=== PATIENT | male | born 2000 | race Caucasian/White ===

== ENCOUNTER 2019-10-26 16:55 | Emergency (ER) | payer BC, OTHER ==
--- NOTE | 2019-10-26 17:16 | EDM.PDOC ---
ED HPI GENERAL MEDICAL PROBLEM - General Chief Complaint: Lower Extremity Injury/Pain Stated Complaint: SPRAINED ANKLE Time Seen by Provider: 10/26/19 17:00 Source of Information: Reports: Patient History Limitations: Reports: No Limitations - History of Present Illness INITIAL COMMENTS - FREE TEXT/NARRATIVE: Patient comes into the emergency department complaints of a left foot injury. Patient states that he was working outside earlier today approximately hours ago when he stepped into a hole with his left foot. [place] hearing any popping or cracking sensation was able to continue with his activities of daily living any difficulty. He even finished his shift today. After his shift and he went home he noticed that he did have a little bit of swelling on the lateral aspect of his ankle and he wanted it checked out further. He denies having any concerns with ambulation, CMS, or range of motion. Patient states that he is able to do all activities without difficulty. Patient states that if he is sitting and not moving his foot he does not notice any discomfort and pain. He only notices the pain is more when he is flexing his foot. He just noticed that there was some bruising and mild swelling on the lateral aspect and wanted to have it checked out. Patient denies any other injuries or concerns. Patient denies any chest pain, shortness of breath, dizziness, lightheadedness, loss consciousness, GI upset, genitourinary concerns or peripheral edema. Patient also states is been relatively healthy and does not have any COVID-19 symptoms and states has not had any recent testing. He denies taking any medication or providing any [id number] relief to the discomfort of his lower extremity prior to arrival. Onset: Today, Sudden Location: Reports: Lower Extremity, Left Quality: Reports: Throbbing Severity: Mild Improves with: Reports: Immobilization Worsens with: Reports: Movement Context: Reports: Activity Associated Symptoms: Reports: No Other Symptoms - Related Data Allergies Allergy/AdvReac Type Severity Reaction Status Date / Time Cephalosporins Allergy Swelling Verified 10/26/19 17:09 Penicillins Allergy Swelling Verified 10/26/19 17:09 Home Meds: Home Meds Sertraline [Zoloft] 50 mg PO DAILY 10/26/19 [History] busPIRone [Buspar] 15 mg PO BID 10/26/19 [History] traZODone HCl [Trazodone HCl] 100 mg PO BEDTIME 10/26/19 [History] Review of Systems - Review of Systems Review Of Systems: Comprehensive ROS is negative, except as noted in HPI. Constitutional: Reports: No Symptoms Eyes: Reports: No Symptoms Ears: Reports: No Symptoms Nose: Reports: No Symptoms Mouth/Throat: Reports: No Symptoms Respiratory: Reports: No Symptoms Cardiovascular: Reports: No Symptoms GI/Abdominal: Reports: No Symptoms Genitourinary: Reports: No Symptoms Skin: Reports: No Symptoms Neurological: Reports: No Symptoms Psychiatric: Reports: No Symptoms ED EXAM, GENERAL - Physical Exam Exam: See Below Exam Limited By: No Limitations General Appearance: Alert, WD/WN, No Apparent Distress Head: Atraumatic, Normocephalic Neck: Normal Inspection, Supple, Non-Tender, Full Range of Motion Respiratory/Chest: No Respiratory Distress, No Accessory Muscle Use, Chest Non- Tender Cardiovascular: Normal Peripheral Pulses, Regular Rate, Rhythm, No Edema Extremities: Normal Inspection, Normal Range of Motion, Non-Tender, No Pedal Edema, Normal Capillary Refill, Other (left foot-mild tissue swelling and ecchymosis noted at the lateral malleolus. CMS and range of motion intake. Pulses palpable. No redness, warmth or deforimity noted) Neurological: Alert, Oriented, Normal Cognition, Normal Gait Psychiatric: Normal Affect, Normal Mood Skin Exam: Warm, Dry, Intact, Normal Color, No Rash Departure - Departure Time of Disposition: 17:10 Disposition: Home, Self-Care 01 Condition: Good Clinical Impression: Left ankle sprain Qualifiers: Encounter type: initial encounter Involved ligament of ankle: unspecified ligament Qualified Code(s): S93.402A - Sprain of unspecified ligament of left ankle, initial encounter - Discharge Information *PRESCRIPTION DRUG MONITORING PROGRAM REVIEWED*: Not Applicable *COPY OF PRESCRIPTION DRUG MONITORING REPORT IN PATIENT TRICIA: Not Applicable Instructions: Ankle Sprain, [id number], How to Use Cold Therapy Additional Instructions: 1. Rest 2. wear marielena wrap if needed for 5-7 days as needed to help with any pain or discomfort 3. Can use tylenol and ibuprofen as needed for pain and discomfort 4. Diet as tolerated 5. Activity as tolerated 6. Elevated the injured area above the level of the heart to decrease swelling and discomfort. 7. Use ice 3-4 times a day at 20-minute intervals to help with any swelling and discomfort 8. Follow-up with your primary care provider symptoms continue or to progress 9. Follow with any questions or concerns 10. Discharge information has been provided regarding your injury - Assessment/Plan Assessment:: 1. left ankle sprain 2. left ankle injury Plan: 1. Ice Applied to the affected limb 2. Medication offered to the patient- pt denied wanting any for he has some he will take at home if he needs any 3. Education regarding splinting, activity, [id number] medications, and follow-up care provided. 4. All questions and concerns addressed with the patient prior to discharge
== END 2019-10-26 17:17 | disposition home or self-care (01) ==
LOC: VM.ED 16:55
DX: S93.402A Sprain of unspecified ligament of left ankle, initial encounter (principal); Z88.0 Allergy status to penicillin; Z88.1 Allergy status to other antibiotic agents; Z79.899 Other long term (current) drug therapy; W18.41XA Slipping, tripping and stumbling without falling due to stepping on object, initial encounter
CPT/HCPCS: 99283; 99283-GF

== ENCOUNTER 2022-07-10 19:39 | Emergency (ER) | payer BC, OTHER ==
[2022-07-10] MEDS ORDERED: Triamcinolone Acetonide 40 MG/ML 1 ML SDV INJECT ONE (20:58)
== END 2022-07-10 21:10 | disposition home or self-care (01) ==
LOC: VM.ED 19:39
DX: L29.9 Pruritus, unspecified (principal); Z88.0 Allergy status to penicillin; Z88.8 Allergy status to other drugs, medicaments and biological substances
CPT/HCPCS: 99282; 99283; J3301

== ENCOUNTER 2024-12-11 15:40 | Emergency (ER) | payer BC, OTHER ==
[2024-12-11] MEDS ORDERED: Sodium Chloride 0.9% 10 ML Syringe FLUSH PRN (15:57)
[2024-12-11] MEDS: Ondansetron 4 MG/2 ML SDV IVPUSH ONE (16:02)
[2024-12-11] MEDS: Orphenadrine 60 MG/2 ML Inj IM ONE (16:02)
[2024-12-11 16:03] LABS: BASOPHILS ABSOLUTE AUTO 0.0 x10^3/uL (0.0-0.2); BASOPHILS PERCENT AUTO 0.3 % (0.2-1.2); EOSINOPHILS ABSOLUTE AUTO 0.0 x10^3/uL (0.0-0.5); EOSINOPHILS PERCENT AUTO 0.0 % (0.0-4.0); IMMATURE GRAN ABSOLUTE AUTO 0.01 x10^3/uL (0.00-0.07); IMMATURE GRAN PERCENT AUTO 0.10 % (0.00-0.43); LYMPHOCYTES ABSOLUTE AUTO 0.8 x10^3/uL (1.0-4.8); LYMPHOCYTES PERCENT AUTO 8.6 % (25.0-50.0); MONOCYTES ABSOLUTE AUTO 0.7 x10^3/uL (0.0-0.8); MONOCYTES PERCENT AUTO 8.1 % (2.0-11.0); NEUTROPHILS ABSOLUTE AUTO 7.5 x10^3/uL (1.8-7.7); NEUTROPHILS PERCENT AUTO 82.9 % (50.0-80.0); PLATELET COUNT,PLT 280 x10^3/uL (130-400); RED BLOOD CELL COUNT 5.78 x10^6/uL (4.5-6.0); WHITE BLOOD CELL COUNT,WBC 9.1 x10^3/uL (4.0-10.0)
[2024-12-11 16:19] LABS: A/G RATIO 1.64; ALANINE AMINOTRANSFERASE,ALT 31 U/L (16-63); ASPARTATE AMNIOTRANSFERASE,AST 24 U/L (15-37); BILIRUBIN TOTAL 1.4 mg/dL (0.2-1.0); BLOOD UREA NITROGEN,BUN 9 mg/dL (7-18); CARBON DIOXIDE,CO2 22 mmol/L (21-32); CHLORIDE,CL 97 mmol/L (98-107); CREATININE 1.2 mg/dL (0.70-1.30); ESTIMATED GFR 86 mL/min (>=60); GLUCOSE RANDOM 114 mg/dL (70-99); POTASSIUM,K 3.9 mmol/L (3.5-5.1); PROTEIN TOTAL,TP 8.7 g/dL (6.4-8.2); SODIUM,NA 139 mmol/L (136-145)
[2024-12-11 16:24] LABS: LACTIC ACID 4.1 mmol/L (0.4-2.0)
[2024-12-11] MEDS: Orphenadrine 60 MG/2 ML Inj IV ONE (16:25)
[2024-12-11] MEDS: Lactated Ringers 1,000 ML IV ONE ×3 (16:25→18:36)
[2024-12-11] MEDS: Ketorolac 15 MG/ML SDV IVPUSH ONE (17:24)
== END 2024-12-11 19:43 | disposition home or self-care (01) ==
LOC: VM.ED 15:40
DX: M54.50 Low back pain, unspecified (principal); E86.0 Dehydration; K52.9 Noninfective gastroenteritis and colitis, unspecified; Z88.0 Allergy status to penicillin
CPT/HCPCS: 36415; 80053; 83605; 83735; 85025; 86140; 93005; 96361; 96374; 96375; 96376; 99284; J1171; J1885; J2360; J2405; J7120